=== PATIENT | female | born 1955 | race Caucasian/White ===

== ENCOUNTER 2019-07-19 21:03 | Inpatient (IN) | payer MEDICARE, OTHER, MEDICAID ==
[2019-07-19 21:44] LABS: ADD MAN DIFF? NO
[2019-07-19 21:49] LABS: WHITE BLOOD COUNT 8.8 10^3/ul (4.8-10.8)
[2019-07-19 21:50] LABS: BASOPHIL # 0.1 10^3/ul (0.0-0.1); EOSINOPHILS # 0.1 10^3/ul (0.0-0.5); EOSINOPHILS % 0.8 % (0.0-7.0); HEMATOCRIT 49.4 % (37.0-47.0); HEMOGLOBIN 17.3 g/dl (12.0-16.0); LYMPHOCYTES # 2.2 10^3/ul (0.8-2.9); LYMPHOCYTES % 24.5 % (15.0-51.0); MEAN CORPUSCULAR HEMOGLOBIN 32.9 pg (29.0-33.0); MEAN CORPUSCULAR VOLUME 93.9 fl (82.0-101.0); MEAN PLATELET VOLUME 9.7 fl (7.4-10.4); MONOCYTE # 0.6 10^3/ul (0.3-0.9); MONOCYTES % 6.8 % (0.0-11.0); NEUTROPHIL # 5.8 10^3/ul (1.6-7.5); NEUTROPHILS % 66.1 % (39.0-77.0); PLATELET COUNT 198 10^3/UL (140-415); RED BLOOD COUNT 5.26 10^6/ul (4.20-5.40)
[2019-07-19 22:08] LABS: ADD UMIC YES; UR ASCORBIC ACID NEGATIVE (NEGATIVE); UR BILIRUBIN (Dip) NEGATIVE (NEGATIVE); UR BLOOD (Dip) NEGATIVE (NEGATIVE); UR CLARITY CLEAR (CLEAR); UR COLOR YELLOW (YELLOW); UR GLUCOSE (Dip) NEGATIVE (NEGATIVE); UR KETONES (Dip) NEGATIVE (NEGATIVE); UR LEUKOCYTE ESTERASE (Dip) NEGATIVE Leu/ul (NEGATIVE); UR NITRITE (Dip) NEGATIVE (NEGATIVE); UR RBC 0 /HPF (0-5); UR TOTAL PROTEIN (Dip) 2+ mg/dl (NEGATIVE); UR UROBILINOGEN (Dip) NEGATIVE (NEGATIVE); UR WBC 9 /HPF (0-5)
[2019-07-19 22:25] LABS: FREE T4 (FREE THYROXINE) 1.36 ng/dl (0.78-2.44)
[2019-07-19 22:56] LABS: INR 1.31; PROTIME 16.4 Sec (11.9-14.9); PT RATIO 1.3
[2019-07-19 22:57] LABS: PARTIAL THROMBOPLASTIN TIME 29.2 Sec (23.0-35.0)
[2019-07-19] MEDS: morphine 4 MG/ML VIAL IV (23:24)
[2019-07-19] MEDS: ONDANSETRON 4 MG INJ IV (23:24)
[2019-07-19 23:30] LABS: ALANINE AMINOTRANSFERASE 30 IU/L (13-69); ALBUMIN 3.3 g/dl (3.3-4.9); ALKALINE PHOSPHATASE 177 IU/L (42-121); ANION GAP 13 (5-13); ASPARTATE AMINO TRANSFERASE 39 IU/L (15-46); BILIRUBIN,INDIRECT 0.8 mg/dl (0-1.1); BILIRUBIN,TOTAL 0.8 mg/dl (0.2-1.3); BLOOD UREA NITROGEN 34 mg/dl (7-20); CALCIUM 9.8 mg/dl (8.4-10.2); CARBON DIOXIDE 17 mmol/L (21-31); CHLORIDE 90 mmol/L (97-110); CREATININE 1.12 mg/dl (0.44-1.00); Estimated GFR 49 mL/min (>60); GLUCOSE 91 mg/dl (70-220); LIPASE 96 U/L (23-300); POTASSIUM 5.4 mmol/L (3.5-5.1); SODIUM 120 mmol/L (135-144); TOTAL PROTEIN 6.6 g/dl (6.1-8.1)
[2019-07-19 23:38] LABS: ETHANOL < 10.0 mg/dl (0-0)
[2019-07-19 23:41] LABS: TROPONIN-I 0.031 ng/ml (0.000-0.120)
[2019-07-20] MEDS ORDERED: DOCUSATE SODIUM 100 MG CAP PO (00:30)
[2019-07-20] MEDS ORDERED: ONDANSETRON 4 MG INJ IV ×2 (00:30)
[2019-07-20] MEDS ORDERED: NACL 0.9% 3 ML SYG IV (00:30)
[2019-07-20] MEDS ORDERED: ACETAMINOPHEN 325 MG TAB PO ×2 (00:30)
[2019-07-20] MEDS ORDERED: MAGNESIUM HYDROXIDE 30ML CUP PO (00:30)
[2019-07-20] MEDS: SOD CHLORIDE 0.9% 1,000 ML IV (02:41)
[2019-07-20 06:00] LABS: ADD MAN DIFF? NO
[2019-07-20 06:02] LABS: WHITE BLOOD COUNT 8.5 10^3/ul (4.8-10.8)
[2019-07-20 06:02] LABS: BASOPHIL # 0.1 10^3/ul (0.0-0.1); BASOPHILS % 1.1 % (0.0-2.0); EOSINOPHILS # 0.1 10^3/ul (0.0-0.5); EOSINOPHILS % 1.3 % (0.0-7.0); HEMATOCRIT 50.8 % (37.0-47.0); HEMOGLOBIN 17.4 g/dl (12.0-16.0); LYMPHOCYTES # 2.5 10^3/ul (0.8-2.9); MEAN CORPUSCULAR HGB CONC 34.3 g/dl (32.0-37.0); MEAN CORPUSCULAR VOLUME 96.4 fl (82.0-101.0); MEAN PLATELET VOLUME 9.2 fl (7.4-10.4); MONOCYTE # 0.7 10^3/ul (0.3-0.9); MONOCYTES % 7.7 % (0.0-11.0); NEUTROPHIL # 5.1 10^3/ul (1.6-7.5); NEUTROPHILS % 60.2 % (39.0-77.0); PLATELET COUNT 159 10^3/UL (140-415); RED BLOOD COUNT 5.27 10^6/ul (4.20-5.40); RED CELL DISTRIBUTION WIDTH 15.7 % (11.5-14.5)
[2019-07-20] MEDS: PANTOPRAZOLE (EC) 40 MG TAB PO (06:14)
[2019-07-20 06:37] LABS: ALANINE AMINOTRANSFERASE 38 IU/L (13-69); ALBUMIN 3.1 g/dl (3.3-4.9); ALBUMIN/GLOBULIN RATIO 0.96; ALKALINE PHOSPHATASE 154 IU/L (42-121); ANION GAP 11 (5-13); ASPARTATE AMINO TRANSFERASE 42 IU/L (15-46); BLOOD UREA NITROGEN 35 mg/dl (7-20); CALCIUM 9.2 mg/dl (8.4-10.2); CARBON DIOXIDE 20 mmol/L (21-31); CHLORIDE 89 mmol/L (97-110); CREATININE 1.14 mg/dl (0.44-1.00); Estimated GFR 48 mL/min (>60); GLUCOSE 92 mg/dl (70-220); POTASSIUM 5.8 mmol/L (3.5-5.1); SODIUM 120 mmol/L (135-144); TOTAL PROTEIN 6.3 g/dl (6.1-8.1)
[2019-07-20 06:52] LABS: B-TYPE NATRIURETIC PEPTIDE 7320 PG/ML (0-125)
[2019-07-20 07:37] LABS: BILIRUBIN,TOTAL 0.9 mg/dl (0.2-1.3)
[2019-07-20 07:38] LABS: BILIRUBIN,INDIRECT 0.9 mg/dl (0-1.1)
[2019-07-20] MEDS: THIAMINE 100 MG TAB PO (09:51)
[2019-07-20] MEDS: METOPROLOL 25 MG TAB PO ×2 (09:52→21:11)
[2019-07-20] MEDS: HEPARIN 5,000 UNIT/1 ML VIAL SC (10:45)
[2019-07-20] MEDS ORDERED: BARIUM SULF 2% 450 ML BTL (BERRY SMOOTHIE) PO (13:00)
[2019-07-20 13:28] LABS: AADO2 Arterial 182.7 mmHg (7.0-24.0); Allen Test ACCEPTAB; Arterial Base Excess -9.8 mmol/L (-3.0-3); Arterial Blood Gas Oxygen Sat 90.7 mmHG (95.0-98.0); Arterial COHb 0.3 % (0.0-3.0); Arterial HCO3 14.2 mmol/L (22.0-26.0); Arterial MetHb 0.5 % (0.0-1.5); Arterial pCO2 28.3 mmhg (35-45); MODE NASAL CANNULA; Site Left Radial
[2019-07-20 15:20] LABS: LACTIC ACID 2.8 mmol/L (0.5-2.0)
[2019-07-20] MEDS: SODIUM BICARBONATE (IV ADD) 50 MEQ in DEXTROSE 5%-0.45% NACL 950 ML IV (16:16)
[2019-07-20] MEDS: NA POLYST SULFON 15 GM/60 ML BTL PO (16:55)
[2019-07-20] MEDS ORDERED: HEPARIN 1000 UNITS/ML 10 ML INJ IV ×4 (17:00→17:30)
[2019-07-20] MEDS: HEPARIN 1000 UNITS/ML 10 ML INJ IV ×2 (17:18→17:30)
[2019-07-20] MEDS: HEPARIN 25000 UNITS/250 ML 250 ML IV (17:19)
[2019-07-20] MEDS: SOD CHLORIDE 0.9% 100 ML ×2 (17:39→18:06)
[2019-07-20] MEDS: IOHEXOL 350MG/ML 50 ML BTL ×2 (17:39→18:06)
[2019-07-20] MEDS: IOHEXOL 100 ML ×2 (17:39→18:06)
[2019-07-20] MEDS: IOHEXOL 14.3 MG(I)/ML (ADULT) BTL PO (20:12)
[2019-07-20] MEDS: CEFEPIME 1GM/50 ML (PMX) 50 ML IVPB (21:11)
[2019-07-21 01:22] LABS: PARTIAL THROMBOPLASTIN TIME > 180.0 Sec (23.0-35.0)
[2019-07-21 04:07] LABS: AADO2 Arterial 606.3 mmHg (7.0-24.0); Allen Test ACCEPTAB; Arterial Base Excess -8.2 mmol/L (-3.0-3); Arterial Blood Gas Oxygen Sat 94.8 mmHG (95.0-98.0); Arterial COHb 0.3 % (0.0-3.0); Arterial HCO3 15.7 mmol/L (22.0-26.0); Arterial MetHb 0.5 % (0.0-1.5); MODE MASK - NRB; Site Left Radial
[2019-07-21 05:02] LABS: PARTIAL THROMBOPLASTIN TIME > 180.0 Sec (23.0-35.0)
[2019-07-21 06:17] LABS: ADD MAN DIFF? NO
[2019-07-21 06:35] LABS: BASOPHIL # 0.1 10^3/ul (0.0-0.1); BASOPHILS % 0.9 % (0.0-2.0); EOSINOPHILS # 0.1 10^3/ul (0.0-0.5); EOSINOPHILS % 0.9 % (0.0-7.0); HEMATOCRIT 54.4 % (37.0-47.0); HEMOGLOBIN 18.7 g/dl (12.0-16.0); LYMPHOCYTES # 1.7 10^3/ul (0.8-2.9); LYMPHOCYTES % 21.9 % (15.0-51.0); MEAN CORPUSCULAR HEMOGLOBIN 33.2 pg (29.0-33.0); MEAN CORPUSCULAR HGB CONC 34.4 g/dl (32.0-37.0); MEAN CORPUSCULAR VOLUME 96.5 fl (82.0-101.0); MEAN PLATELET VOLUME 10.4 fl (7.4-10.4); MONOCYTE # 0.7 10^3/ul (0.3-0.9); MONOCYTES % 9.4 % (0.0-11.0); NEUTROPHILS % 66.2 % (39.0-77.0); NUCLEATED RED BLOOD CELLS% 0.4 /100WBC (0.0-0.0); PLATELET COUNT 163 10^3/UL (140-415); RED BLOOD COUNT 5.64 10^6/ul (4.20-5.40); RED CELL DISTRIBUTION WIDTH 16.3 % (11.5-14.5)
[2019-07-21 06:35] LABS: WHITE BLOOD COUNT 7.6 10^3/ul (4.8-10.8)
[2019-07-21] MEDS: SODIUM BICARBONATE (IV ADD) 50 MEQ in DEXTROSE 5%-0.45% NACL 950 ML IV ×2 (06:36→17:36)
[2019-07-21] MEDS: PANTOPRAZOLE (EC) 40 MG TAB PO (06:39)
[2019-07-21 06:53] LABS: ALANINE AMINOTRANSFERASE 29 IU/L (13-69); ALBUMIN 3.2 g/dl (3.3-4.9); ALBUMIN/GLOBULIN RATIO 0.94; ALKALINE PHOSPHATASE 160 IU/L (42-121); ANION GAP 13 (5-13); ASPARTATE AMINO TRANSFERASE 47 IU/L (15-46); BILIRUBIN,INDIRECT 0.9 mg/dl (0-1.1); BLOOD UREA NITROGEN 37 mg/dl (7-20); CALCIUM 9.2 mg/dl (8.4-10.2); CARBON DIOXIDE 19 mmol/L (21-31); CHLORIDE 90 mmol/L (97-110); CREATININE 1.57 mg/dl (0.44-1.00); Estimated GFR 33 mL/min (>60); GLUCOSE 116 mg/dl (70-220); POTASSIUM 5.3 mmol/L (3.5-5.1); SODIUM 122 mmol/L (135-144); TOTAL PROTEIN 6.6 g/dl (6.1-8.1)
[2019-07-21 06:54] LABS: PHOSPHORUS 5.5 mg/dl (2.5-4.9)
[2019-07-21 06:54] LABS: MAGNESIUM 1.9 mg/dl (1.7-2.5)
[2019-07-21 07:17] LABS: PARTIAL THROMBOPLASTIN TIME > 180.0 Sec (23.0-35.0)
[2019-07-21] MEDS: METOPROLOL 25 MG TAB PO ×2 (08:23→20:20)
[2019-07-21] MEDS: CEFEPIME 1GM/50 ML (PMX) 50 ML IVPB ×2 (08:23→20:18)
[2019-07-21] MEDS: NA POLYST SULFON 15 GM/60 ML BTL PO (08:27)
[2019-07-21] MEDS: THIAMINE 100 MG TAB PO (08:29)
[2019-07-21 21:20] LABS: AADO2 Arterial 613.8 mmHg (7.0-24.0); Allen Test ACCEPTAB; Arterial Base Excess -7.9 mmol/L (-3.0-3); Arterial Blood Gas Oxygen Sat 93.4 mmHG (95.0-98.0); Arterial COHb 0 % (0.0-3.0); Arterial Fraction of Oxyhgb 92.8 % (93.0-99.0); Arterial MetHb 0.6 % (0.0-1.5); Arterial pCO2 30.1 mmhg (35-45); MODE HFNC; Site Left Radial
[2019-07-22] MEDS: SODIUM BICARBONATE (IV ADD) 50 MEQ in DEXTROSE 5%-0.45% NACL 950 ML IV (03:01)
[2019-07-22] MEDS: PANTOPRAZOLE (EC) 40 MG TAB PO (05:06)
[2019-07-22 05:34] LABS: ADD MAN DIFF? NO
[2019-07-22 05:59] LABS: BASOPHIL # 0.1 10^3/ul (0.0-0.1); BASOPHILS % 0.9 % (0.0-2.0); EOSINOPHILS % 0.5 % (0.0-7.0); HEMOGLOBIN 18.1 g/dl (12.0-16.0); LYMPHOCYTES # 1.8 10^3/ul (0.8-2.9); LYMPHOCYTES % 20.8 % (15.0-51.0); MEAN CORPUSCULAR HEMOGLOBIN 33.5 pg (29.0-33.0); MEAN CORPUSCULAR HGB CONC 34.2 g/dl (32.0-37.0); MEAN PLATELET VOLUME 9.8 fl (7.4-10.4); MONOCYTE # 0.8 10^3/ul (0.3-0.9); MONOCYTES % 9.3 % (0.0-11.0); NEUTROPHIL # 5.9 10^3/ul (1.6-7.5); NEUTROPHILS % 67.6 % (39.0-77.0); NUCLEATED RED BLOOD CELLS% 0.5 /100WBC (0.0-0.0); RED BLOOD COUNT 5.41 10^6/ul (4.20-5.40); RED CELL DISTRIBUTION WIDTH 16.1 % (11.5-14.5)
[2019-07-22 05:59] LABS: WHITE BLOOD COUNT 8.7 10^3/ul (4.8-10.8)
[2019-07-22 06:00] LABS: PLATELET COUNT 176 10^3/UL (140-415)
[2019-07-22 06:07] LABS: INR 1.96; PARTIAL THROMBOPLASTIN TIME 30.4 Sec (23.0-35.0); PROTIME 22.4 Sec (11.9-14.9); PT RATIO 1.8
[2019-07-22 06:08] LABS: MAGNESIUM 1.7 mg/dl (1.7-2.5)
[2019-07-22 06:08] LABS: PHOSPHORUS 5.8 mg/dl (2.5-4.9)
[2019-07-22 06:11] LABS: THROMBIN TIME 18.4 SEC (13.8-19.1)
[2019-07-22 06:16] LABS: ALANINE AMINOTRANSFERASE 168 IU/L (13-69); ALBUMIN 2.9 g/dl (3.3-4.9); ALBUMIN/GLOBULIN RATIO 0.93; ALKALINE PHOSPHATASE 156 IU/L (42-121); ANION GAP 13 (5-13); ASPARTATE AMINO TRANSFERASE 259 IU/L (15-46); BILIRUBIN,INDIRECT 0.9 mg/dl (0-1.1); BILIRUBIN,TOTAL 1.2 mg/dl (0.2-1.3); BLOOD UREA NITROGEN 38 mg/dl (7-20); CALCIUM 9.1 mg/dl (8.4-10.2); CARBON DIOXIDE 20 mmol/L (21-31); CHLORIDE 91 mmol/L (97-110); Estimated GFR 19 mL/min (>60); GLUCOSE 113 mg/dl (70-220); POTASSIUM 4.4 mmol/L (3.5-5.1); SODIUM 124 mmol/L (135-144)
[2019-07-22 06:19] LABS: PLATELET COUNT 176 10^3/UL (140-415)
[2019-07-22] MEDS: METOPROLOL 25 MG TAB PO ×2 (09:00→20:54)
[2019-07-22] MEDS: THIAMINE 100 MG TAB PO (09:00)
[2019-07-22] MEDS: CEFEPIME 1GM/50 ML (PMX) 50 ML IVPB (09:19)
[2019-07-22] MEDS: SODIUM BICARBONATE (IV ADD) 75 MEQ in DEXTROSE 5%-0.45% NACL 925 ML IV ×2 (09:19→20:53)
[2019-07-22] MEDS ORDERED: NORepinephrine 8MG/250 ML (PMX 250 ML (11:04)
[2019-07-22] MEDS ORDERED: PROPOFOL 100 ML (11:40)
[2019-07-22] MEDS: LACTATED RINGER'S 1,000 ML IV (11:46)
[2019-07-22] MEDS: NORepinephrine 8MG/250 ML (PMX 250 ML IV ×2 (11:48→18:37)
[2019-07-22] MEDS: PROPOFOL 100 ML IV ×2 (12:03→23:52)
[2019-07-22 12:43] LABS: AADO2 Arterial 636.3 mmHg (7.0-24.0); Allen Test ACCEPTAB; Arterial Base Excess -7.7 mmol/L (-3.0-3); Arterial Blood Gas Oxygen Sat 78.6 mmHG (95.0-98.0); Arterial COHb 0.1 % (0.0-3.0); Arterial Fraction of Oxyhgb 78.3 % (93.0-99.0); Arterial HCO3 15.9 mmol/L (22.0-26.0); Arterial MetHb 0.3 % (0.0-1.5); Arterial pCO2 29.2 mmhg (35-45); MODE VENT - AC; Site Right Radial
[2019-07-22] MEDS: PHENYLephrine 20MG IN 250 ML 250 ML IV ×4 (15:04→19:05)
[2019-07-22] MEDS: NORepinephrine 32 MG in DEXTROSE 5% 218 ML IV ×2 (19:44→20:58)
[2019-07-22] MEDS ORDERED: PHENYLephrine 20MG IN 250 ML 250 ML (19:56)
[2019-07-22] MEDS ORDERED: DOPamine-D5W 1.6 MG/ML 250 ML (20:14)
[2019-07-22] MEDS: DOPamine 1,600 MG in DEXTROSE 5% 210 ML IV (20:57)
[2019-07-22] MEDS: PHENYLephrine 80 MG in DEXTROSE 5% 242 ML IV ×2 (20:59→21:16)
[2019-07-22 22:37] LABS: AADO2 Arterial 621.5 mmHg (7.0-24.0); Allen Test ACCEPTAB; Arterial Base Excess -15.1 mmol/L (-3.0-3); Arterial Blood Gas Oxygen Sat 83.7 mmHG (95.0-98.0); Arterial COHb 0.3 % (0.0-3.0); Arterial Fraction of Oxyhgb 82.9 % (93.0-99.0); Arterial HCO3 11.8 mmol/L (22.0-26.0); Arterial MetHb 0.6 % (0.0-1.5); Arterial pCO2 32.4 mmhg (35-45); MODE VENT - AC; Site Left Radial
[2019-07-23] MEDS ORDERED: PANTOPRAZOLE 40 MG INJ IV (06:00)
[2019-07-23] MEDS ORDERED: CEFEPIME 2GM/50 ML IVPB (09:00)
== END 2019-07-23 00:35 | disposition expired | DRG 640 ==
LOC: E/R 21:03 → 6WM 07-20 00:03 → ICU 07-20 14:20
PROVIDERS: Internal Medicine
PROC: 4A133R1 Monitoring of Arterial Saturation, Peripheral, Percutaneous Approach (ICD-10-PCS; 2019-07-20)
PROC: 0BH17EZ Insertion of Endotracheal Airway into Trachea, Via Natural or Artificial Opening (ICD-10-PCS; principal; 2019-07-22)
PROC: 5A1935Z Respiratory Ventilation, Less than 24 Consecutive Hours (ICD-10-PCS; 2019-07-22)
PROC: 06HM33Z Insertion of Infusion Device into Right Femoral Vein, Percutaneous Approach (ICD-10-PCS; 2019-07-22)
DX: E87.1 Hypo-osmolality and hyponatremia (principal); G92 Toxic encephalopathy; J96.21 Acute and chronic respiratory failure with hypoxia; J69.0 Pneumonitis due to inhalation of food and vomit; N17.9 Acute kidney failure, unspecified; F10.288 Alcohol dependence with other alcohol-induced disorder; Q21.0 Ventricular septal defect; E87.2 Acidosis; R57.8 Other shock; E86.0 Dehydration; Z66 Do not resuscitate; I12.9 Hypertensive chronic kidney disease with stage 1 through stage 4 chronic kidney disease, or unspecified chronic kidney disease; N18.9 Chronic kidney disease, unspecified; I27.20 Pulmonary hypertension, unspecified; K70.30 Alcoholic cirrhosis of liver without ascites; I73.9 Peripheral vascular disease, unspecified; R00.0 Tachycardia, unspecified; F20.9 Schizophrenia, unspecified; R91.8 Other nonspecific abnormal finding of lung field; D75.1 Secondary polycythemia; Z87.891 Personal history of nicotine dependence; Z88.0 Allergy status to penicillin
CPT/HCPCS: 31500; 36415; 36600; 70450; 71045; 71250; 71275; 74177; 76775; 80053; 80307; 81001; 82105; 82803; 82962; 83605; 83690; 83735; 83880; 84100; 84439; 84443; 84484; 85025; 85049; 85610; 85670; 85730; 93005; 93306; 93308; 93922; 93970; 94002; 94003; 94770; 96374; 96375; 99285-25